=== PATIENT | male | born 1945 | race Caucasian/White ===

== ENCOUNTER → 2024-04-21 14:30 | Outpatient (REF) | payer MEDICARE, OTHER, SELFPAY | LOC: MRI 3T 14:30 | PROVIDERS: ATTENDING PHYSICIAN Physician Assistant Surgical; FAMILY PHYSICIAN Family Medicine | DX: M25.562 Pain in left knee (principal) | CPT/HCPCS: 73721 ==

== ENCOUNTER → 2024-04-28 13:15 | Outpatient (REF) | payer MEDICARE, OTHER, SELFPAY ==
[2024-04-28 14:59] LABS: % Basophils 0.7 % (0-2); % Eosinophils 1.5 % (0-6); % Immature Granulocytes 0.3 % (0-0.5); % Monocytes 7.8 % (1.7-9.3); % Neutrophils 65.7 % (42.2-75.2); Absolute Eosinophils 0.1 10^3/uL (0-0.7); Absolute Lymphocytes 1.5 10^3/uL (1.2-3.4); Absolute Monocytes 0.5 10^3/uL (0.1-0.6); Hematocrit 40.9 % (39.0-52.0); Hemoglobin 14.8 g/dL (13.0-18.0); Mean Corp Hgb Conc. 36.2 g/dL (33.0-37.0); Mean Corpuscular Hgb 32.8 pg (27.0-31.0); Mean Corpuscular Volume 90.7 fL (80.0-94.0); Mean Platelet Volume 8.8 fL (7.4-10.4); Nucleated Red Blood Cells % 0 % (-); Platelet Count 298 10^3/uL (130-400); Red Blood Cell Count 4.51 10^6/uL (4.70-6.10); Red Cell Dist. Width 12.4 % (11.5-14.5); White Blood Cell Count 6.1 10^3/uL (4.8-10.8)
[2024-04-28 15:19] LABS: Blood Urea Nitrogen 12 mg/dl (9-20); Calcium 9.7 mg/dl (8.4-10.2); Carbon Dioxide 27 mmol/L (22-30); Chloride 103 mmol/L (98-107); Glucose 94 mg/dl (70-99); Potassium 4.2 mmol/L (3.5-5.1); Sodium 138 mmol/L (135-145); eGFR > 60.00
== END ==
LOC: REG 13:15
PROVIDERS: ATTENDING PHYSICIAN Specialist; FAMILY PHYSICIAN Family Medicine
DX: Z01.818 Encounter for other preprocedural examination (principal)
CPT/HCPCS: 36415; 80048; 85025; 93005

== ENCOUNTER → 2024-09-02 14:48 | Outpatient (REF) | payer MEDICARE, OTHER, SELFPAY | LOC: MRI 3T 14:48 | PROVIDERS: ATTENDING PHYSICIAN Specialist; FAMILY PHYSICIAN Family Medicine | DX: R97.20 Elevated prostate specific antigen [PSA] (principal) | CPT/HCPCS: 72197; A9575 ==

== ENCOUNTER → 2024-10-31 13:01 | Outpatient (REF) | payer MEDICARE, OTHER, SELFPAY | LOC: SDSPAT 13:01 | PROVIDERS: ATTENDING PHYSICIAN Specialist; FAMILY PHYSICIAN Family Medicine | DX: N40.1 Benign prostatic hyperplasia with lower urinary tract symptoms (principal) | CPT/HCPCS: 36415; 93005 ==

== ENCOUNTER 2024-11-16 06:23 | Day surgery (SDC) | payer MEDICARE, OTHER, SELFPAY ==
[2024-10-31 13:50] VITALS: BMI 24.9
[2024-11-16] VITALS (15 sets, daily range): BP systolic 125–162; BP diastolic 66–85; BMI 24.9
[2024-11-16] MEDS: NORMOSOL-R/PLASMALYTE-A 1000 IV (08:53)
[2024-11-16] MEDS: Pyridium 200 MG PO (13:04)
[2024-11-16] MEDS: DETROL LA 4 MG PO (14:03)
[2024-11-16] MEDS: DILAUDID 0.25 MG IV (14:06)
--- NOTE | 2024-11-16 15:11 | PTCARENOTE ---
received pt from recovery AAOx3, with BBI at a moderate rate. urine output is yellow and clear. pt c/o discomfort in his penis and perineum area. oriented to room and bed controls. pt comfortable and stable at this time
[2024-11-16] MEDS: COLACE 100 MG PO (16:44)
[2024-11-16] MEDS: TYLENOL 650 MG PO (20:00)
[2024-11-17 03:40] VITALS: BP 131/76
[2024-11-17 07:40] VITALS: BP 146/86
[2024-11-17] MEDS: FLOMAX 0.4 MG PO (08:15)
[2024-11-17] MEDS: HYZAAR 100-12.5 TABLET 1 TAB PO (08:15)
[2024-11-17] MEDS: COLACE 100 MG PO (08:15)
[2024-11-17] MEDS: URECHOLINE 50 MG PO (10:36)
[2024-11-17] MEDS: COLACE PO (10:38)
--- NOTE | 2024-11-17 10:56 | CM ---
Met with pt at bedside
Pt reports he lives with his in a 2 story home; 1 step to enter, FF set-up
Independent, retired, drives
DME - none
SNF/HH - denies past hx
Has ride at discharge
PCP - Nirmal Torrez
Pharm - [facility] on [address]
Plan - anticipate home no needs
[2024-11-17 12:05] VITALS: BP 159/57
--- NOTE | 2024-11-17 12:27 | W.PN.URO.CBU ---
Today's Communication / Plan
-
discharge
Assessment / Plan
-
stable
Diagnosis
-
Date of Service: November 17, 2024
-
Patient Diagnosis: s/p TURP
Post Op Day: 1
Subjective
-
hematuria voiding
Objective
-
Vital Signs
Temp Pulse Resp BP Pulse Ox
97.5 F 95 18 159/57 96
11/17/24 12:05 11/17/24 12:05 11/17/24 12:05 11/17/24 12:05 11/17/24 08:00
Intake and Output
11/16/24 11/17/24 11/18/24
06:59 06:59 06:59
Intake Total 185 / 185
Output Total 2049 165 / 165
Balance -200 / -200 -1650 / -1650
Intake:
Oral fluids 1050 / 1050
IV fluids (Total) 800 / 800
Normosol 300 / 300
IV piggybacks 0 / 0
Output:
True Urine Output from CBI 2049 / 1649
Physical Exam
-
General - well developed, well nourished, no acute distress
Chest - clear bilaterally
Abdomen - soft, non-tender, positive bowel sounds, no CVAT, no incisional pain or distention
Genitalia - normal
Rectal - normal
Skin - warm & dry with no rash
Neuro - AOx3, no motor deficits
Extremities - no clubbing, no cyanosis, no edema
Incision - clean, dry
Dressing - clean, dry, intact
== END 2024-11-17 13:16 | disposition home or self-care (01) ==
LOC: SDS 06:23
PROVIDERS: ATTENDING PHYSICIAN Specialist; FAMILY PHYSICIAN Family Medicine
DX: C61 Malignant neoplasm of prostate (principal); N40.1 Benign prostatic hyperplasia with lower urinary tract symptoms; R39.198 Other difficulties with micturition
CPT/HCPCS: 52601; 88305; 88344

== ENCOUNTER → 2025-05-01 16:24 | Outpatient (REF) | payer MEDICARE, OTHER, SELFPAY | LOC: RAD 16:24 | PROVIDERS: ATTENDING PHYSICIAN Nurse Practitioner Family | DX: J32.0 Chronic maxillary sinusitis (principal); R05.3 Chronic cough | CPT/HCPCS: 71046 ==

== ENCOUNTER → 2025-05-02 08:41 | Outpatient (REF) | payer MEDICARE, OTHER, SELFPAY ==
[2025-05-02 09:34] LABS: Hematocrit 41.2 % (39.0-52.0); Hemoglobin 14.1 g/dL (13.0-18.0); Mean Corp Hgb Conc. 34.2 g/dL (33.0-37.0); Mean Corpuscular Volume 94.3 fL (80.0-94.0); Nucleated Red Blood Cells % 0 % (-); Platelet Count 414 10^3/uL (130-400); Red Cell Dist. Width 12.2 % (11.5-14.5)
[2025-05-02 10:14] LABS: ALT (SGPT) 23 U/L (0-50); AST (SGOT) 23 U/L (17-59); Albumin 3.9 g/dl (3.5-5.0); Alkaline Phosphatase 71 U/L (38-126); Blood Urea Nitrogen 14 mg/dl (9-20); Calcium 8.9 mg/dl (8.4-10.2); Carbon Dioxide 26 mmol/L (22-30); Chloride 108 mmol/L (98-107); Glucose 99 mg/dl (70-99); Potassium 4.2 mmol/L (3.5-5.1); Sodium 141 mmol/L (135-145); Total Protein 6.6 g/dl (6.3-8.2); eGFR > 60.00
== END ==
LOC: REG 08:41
PROVIDERS: ATTENDING PHYSICIAN Nurse Practitioner Family
DX: J32.0 Chronic maxillary sinusitis (principal); R05.3 Chronic cough
CPT/HCPCS: 36415; 80053; 85025